=== PATIENT | female | born 1990 | race Caucasian/White ===

== ENCOUNTER → 2016-09-22 | Outpatient (CLI) | payer BC ==
[~2016-09-22] MED LIST: BCPILLS PO; HMLIS SC; INSDGIPEN SQ
== END | disposition home or self-care (01) ==
LOC: C.PAPS 12:15
PROVIDERS: ATTEND Obstetrics & Gynecology
DX: Z01.419 Encounter for gynecological examination (general) (routine) without abnormal findings (principal)

== ENCOUNTER → 2016-11-20 | Outpatient (CLI) | payer BC ==
[2016-11-20 09:59] LABS: ALB/GLOB RATIO 0.9 (0.9-2); ALKALINE PHOSPHATASE 109 U/L (45-117); ALT/SGPT 25 U/L (12-78); AST/SGOT 12 U/L (15-37); BLOOD UREA NITROGEN 14 mg/dl (7-18); BUN/CREATININE RATIO 16.3 (10-20); CALCIUM 8.8 mg/dl (8.5-10.1); CARBON DIOXIDE 28 mmol/L (21-32); CHLORIDE 103 mmol/L (98-107); CREATININE 0.85 mg/dl (0.60-1.20); GLUCOSE 235 mg/dl (70-99); POTASSIUM 4.2 mmol/L (3.5-5.1); SODIUM 138 mmol/L (136-145)
[2016-11-20 11:01] LABS: ESTIMATED AVERAGE GLUCOSE 189 mg/dl; HA1C FLAG Normal (Normal)
== END | disposition home or self-care (01) ==
LOC: C.LAB1850 07:23
PROVIDERS: ATTEND Physician Assistant
DX: E10.9 Type 1 diabetes mellitus without complications (principal)

== ENCOUNTER → 2017-05-03 | Outpatient (CLI) | payer BC ==
[2017-05-03 10:05] LABS: ESTIMATED AVERAGE GLUCOSE 189 mg/dl; HA1C FLAG Normal (Normal)
== END | disposition home or self-care (01) ==
LOC: C.LAB1850 07:28
PROVIDERS: ATTEND Physician Assistant
DX: E10.65 Type 1 diabetes mellitus with hyperglycemia (principal)

== ENCOUNTER → 2017-08-30 | Outpatient (CLI) | payer OTHER ==
[2017-08-30 18:57] LABS: CREATININE RANDOM URINE 21.8 mg/dl
[2017-08-31 06:01] LABS: HEMOGLOBIN A1C 7.8 % (4.5-5.6)
== END | disposition home or self-care (01) ==
LOC: C.LAB 17:42
PROVIDERS: ATTEND Physician Assistant
DX: E10.9 Type 1 diabetes mellitus without complications (principal)

== ENCOUNTER → 2017-11-29 | Outpatient (CLI) | payer OTHER ==
[2017-11-29 09:37] LABS: HEMATOCRIT 39.2 % (37-47); HEMOGLOBIN 13.4 g/dL (12.0-16.0); MEAN CELL VOLUME 84.3 fL (80-100); MEAN CORPUSCULAR HEMOGLOBIN 28.8 pg (25-34); MEAN CORPUSCULAR HGB CONC 34.2 g/dl (32-36); PLATELET COUNT 328 K/uL (130-400); RED CELL DISTRIBUTION WIDTH CV 12.6 % (11.5-14.5); RED CELL DISTRIBUTION WIDTH SD 38.5 fL (36.4-46.3); WHITE BLOOD COUNT 6.71 K/uL (4.8-10.8)
[2017-11-29 09:57] LABS: HEMOGLOBIN A1C 7.7 % (4.5-5.6)
== END | disposition home or self-care (01) ==
LOC: C.LAB1850 07:20
PROVIDERS: ATTEND Physician Assistant
DX: E10.9 Type 1 diabetes mellitus without complications (principal)

== ENCOUNTER → 2018-03-19 | Outpatient (CLI) | payer OTHER ==
[2018-03-19 11:29] LABS: ALBUMIN 3.8 gm/dl (3.4-5.0); ALKALINE PHOSPHATASE 91 U/L (45-117); ALT/SGPT 24 U/L (12-78); AST/SGOT 18 U/L (15-37); BLOOD UREA NITROGEN 15 mg/dl (7-18); CALCIUM 8.9 mg/dl (8.5-10.1); CARBON DIOXIDE 27 mmol/L (21-32); CREATININE 0.83 mg/dl (0.60-1.20); GLUCOSE 173 mg/dl (70-99); POTASSIUM 4.4 mmol/L (3.5-5.1); SODIUM 136 mmol/L (136-145)
== END | disposition home or self-care (01) ==
LOC: C.LAB 09:10
PROVIDERS: ATTEND Physician Assistant
DX: E10.9 Type 1 diabetes mellitus without complications (principal)

== ENCOUNTER → 2018-03-23 | Outpatient (CLI) | payer OTHER ==
[2018-03-24 06:19] LABS: HEMOGLOBIN A1C 7.6 % (4.5-5.6)
[2018-03-25 12:56] LABS: MICROSOMAL AB <1 IU/ML (<9)
== END | disposition home or self-care (01) ==
LOC: C.LAB1850 15:57
PROVIDERS: ATTEND Physician Assistant
DX: R79.89 Other specified abnormal findings of blood chemistry (principal); E10.9 Type 1 diabetes mellitus without complications

== ENCOUNTER 2022-07-12 19:04 | Inpatient (IN) ==
--- NOTE | 2022-07-12 19:42 | Obstetrical Progress Note ---
Date of Service July 12, 2022 Assessment & Plan (1) Type 1 diabetes mellitus affecting , antepartum: Plan gutiérrez placed. Will monitor pressures closely. no s/s of pet, may be anxious. If pressures remain elevated, would plan to keep for induction tonight. fetus category one. Subjective Patient presents 39 2/7 weeks to labor and delivery for gutiérrez bulb. Induction for type one diabetes. Patient feels well. Initial bp are elevated. Patient notes she feels well. no s/s of pet. Notes no vb/lof. +cramping. Discussed gutiérrez bulb and reason why we recommend . Verbal consent obtained. Physical Exam Physical Exam: cx--/-2 toco--nehemiah efm--150s with mod variability accels to 170s, no decels speculum placed. cx visualized and gutiérrez placed through. inflated with 30cc of sterile bleeding. a small amount of bleeding noted. tolerated well. Results & Data ([facility]) Vital Signs (Past 12 Hours) Vital Signs Temp Pulse Resp BP 07/12/22 19:15 20 07/12/22 19:15 37.0 C 20 07/12/22 19:29 104 H 161/101 H 07/12/22 19:19 96 H 158/98 H 07/12/22 19:18 92 H 176/105 H 07/12/22 19:16 89 144/89 H PG Care Time/CCT Total # of Minutes Spent Total Time Spent with Patient: Total time spent is greater than 50% in coordination of care (as documented) at patient's floor/unit and/or counseling patient: Coding Level of Care Code None Diagnoses Type 1 diabetes mellitus affecting , antepartum O24.019
[2022-07-12 20:15] LABS: Hemoglobin 10.4 g/dl (12.0-16.0); Mean Corpuscular Hemoglobin 28.6 pg (25.0-34.0); Mean Corpuscular Hgb Conc 33.5 g/dL (32.0-36.0); Mean Corpuscular Volume 85.2 fL (80.0-100.0); Platelet Count 323 K/uL (130-400); RDW Coefficient of Variation 13.1 % (11.5-14.5); RDW Standard Deviation 40.2 fL (36.4-46.3); Red Blood Count 3.64 M/uL (3.93-5.22); White Blood Count 9.76 K/ul (4.8-10.8)
--- NOTE | 2022-07-12 20:26 | History & Physical Report ---
Date of Service July 12, 2022 Assessment & Plan (1) Type 1 diabetes mellitus affecting , antepartum: (2) Group beta Strep positive: (3) with 39 completed weeks gestation: (4) Gestational hypertension: Plan Pressures have been completely normal in the office and now elevated to borderline severe range. With some rest they have resolved to more normal of 130-140/70-80. Plan to keep for induction now as I do not feel comfortable sending her home with the potential for blood pressures like she had. Likely has at minimum GHTN although has not been 4 hours between pressures to make a definitie diagnosis. Labs are all wnl. She is currently asymptomatic. Plan pitocin with her gutiérrez. treat gbs when starts to labor--pcn allergy, hives, will trial ancef. Treat BP as indicated. fetus category one. Patient will monitor her own blood sugars and insulin to keep her bs between 80-120. Anticipate . History of Present Illness Chief Complaint: presents for gutiérrez Primary Care Provider: Pallavi Adler MD Patient is a 32yowf who presents at 39 2/7 weeks for gutiérrez bulb for planned induction on Wednesday. She has been in her usual state of health. Notes no hastings/n/v/ruq pain/increase in swelling. Notes good fm. no lof/vb. Not really feeling contractions. she is having an induction because she is a type 1 diabetic. Gutiérrez bulb was placed without difficulty. Unfortunately her pressures were elevated even after placing the gutiérrez. 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 NON-REACTIVE (NON-REACTIVE) 12/10/21 Hepatitis C Antibody (EIA) NON-REACTIVE (NON-REACTIVE) 12/10/21 HIV (1&2) Ab and P24 Ag, 4th Gener NON-REACTIVE (NON-REACTIVE) 02/25/22 Maternal Serum Alpha Fetoprotein 44.8 ng/mL 01/28/22 OB Optional Labs: Chlamydia trachomatis RNA NOT DETECTED (NOT DETECTED) 12/05/21 F Neisseria gonorrhoeae RNA NOT DETECTED (NOT DETECTED) 12/05/21 Thyroid Stimulating Hormone (TSH) 1.17 mIU/L 04/27/22 Alpha Fetoprotein Triple Screen SEE NOTE 01/28/22 Labs Reviewed: 12/10/21 Blood TypeO positive antibody screennegative afp neg--akh low risk panorama sma neg cf +--spouse neg gbs positive urine Allergies Allergy/AdvReac Type Severity Reaction Status Date / Time Penicillins Allergy Unknown rash Verified 07/10/22 10:41 Home Medications Medication Instructions Recorded Confirmed Type acetone (urine) test (Ketostix #25 ea 05/17/19 07/10/22 History strips) blood sugar diagnostic (FreeStyle #100 ea 07/17/20 07/10/22 Rx Test strips) Novolog U-100 Insulin aspart 100 80 unit (0.8 mL) continuous 09/26/21 07/10/22 Rx unit/mL subcutaneous solution subcutaneous infusion DAILY #8 (insulin aspart U-100) vials blood sugar diagnostic (FreeStyle #200 ea 09/26/21 07/10/22 Rx Test strips) glucagon HCl 1 mg/mL solution for 1 mg IM UD PRN hypoglycemia #1 ea 09/26/21 07/10/22 Rx injection prenat.vits,julian,vtk-wawg-ndadd 1 tab PO DAILY 11/14/21 07/10/22 History aspirin 81 mg tablet,delayed 81 mg PO DAILY 07/01/22 07/10/22 History release (Adult Low Dose Aspirin) Patient History Medical History 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 Left fibular fracture PCOS (polycystic ovarian syndrome) Seasonal allergies Type 1 diabetes Varicella vaccination Surgical History Status post wisdom tooth extraction Family History Sister Anxiety Mother Diabetes Hypothyroidism Skin cancer Father Hypertension Prostate cancer Family/Other Cystic fibrosis niece Other Kidney disease Denies family history of Ovarian cancer Breast cancer Colorectal cancer Social History Smoking Status: Never smoker Second Hand Exposure: No; Do You Dip or Chew Tobacco: No; Tobacco Cessation Education Requested by Patient: No Hx Alcohol Use: Yes Hx Substance Use: No Preferred Language: Wallisian Communication Ability: Effective Visual Impairment: No Limitations Hearing Ability: Normal Keyboard Teacher Required: No Beliefs That Will Affect Care: None marital status: marital status details: aHrmeet Barlow (29) [phone] Current Living Situation: Spouse Current Living Situation Comment: current occupational status: employed 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 Neurologic: patellar DTR's 2+ bilat, sensation intact Psychiatric: A+Ox3, euthymic affect Results & Data ([facility]) Vital Signs (Past 12 Hours) Vital Signs Temp Pulse Resp BP 07/12/22 19:44 37.0 C 18 07/12/22 20:19 85 153/79 H 07/12/22 20:08 83 162/83 H 07/12/22 20:00 83 172/93 H 07/12/22 19:50 84 160/90 H 07/12/22 19:15 20 07/12/22 19:15 37.0 C 20 07/12/22 19:29 104 H 161/101 H 07/12/22 19:19 96 H 158/98 H 07/12/22 19:18 92 H 176/105 H 07/12/22 19:16 89 144/89 H Coding Level of Care Code None Diagnoses Type 1 diabetes mellitus affecting , antepartum O24.019 Group beta Strep positive B95.1 with 39 completed weeks gestation Z3A.39 Gestational hypertension O13.9
[2022-07-12] MEDS ORDERED: SODIUM CHLORIDE 0.9% 250 ML IV PRN (20:38)
[2022-07-12 20:53] LABS: Albumin Globulin Ratio 1.3 (0.9-2); Albumin Level 3.4 gm/dl (3.4-5.0); BUN Creatinine Ratio 14.9 (10-20); Bilirubin,Total 0.7 mg/dl (0.2-1.0); Creatinine Clr Calc Pharmacy 145.6 ml/min; Est GFR (African American) 136.7 ml/min; Globulin 2.7 gm/dl (2.5-4.0); Potassium 4.2 mmol/L (3.5-5.1); Total Protein 6.1 gm/dl (6.0-8.3)
[2022-07-12] MEDS ORDERED: OXYTOCIN 30 UNITS/500 ML BAG IV PRN ×2 (21:03→21:07)
[2022-07-12] MEDS ORDERED: ceFAZolin 2000MG 2,000 MG/15 ML SYR IV STA (21:03)
[2022-07-12] MEDS ORDERED: LIDOCAINE 1% LOCAL 20 ML VIAL INFIL PRN (21:03)
[2022-07-12] MEDS: LACTATED RINGER'S 1,000 ML IV PRN (22:00)
[2022-07-13] MEDS ORDERED: ceFAZolin 1000MG 1,000 MG/7.5 ML SYR IV PRN (04:03)
[2022-07-13] MEDS: LACTATED RINGER'S 1,000 ML IV PRN ×2 (05:51→16:24)
--- NOTE | 2022-07-13 07:16 | Labor Progress Brief Note ---
Date of Service July 13, 2022 Subjective noting contractions Assessment & Plan (1) Gestational hypertension: (2) with 39 completed weeks gestation: Plan gutiérrez out. Increase pitocin. fetus category one. BPs slightly elevated but not in severe range. epidural on demand. arom as indicated. Admission and Anticipated Discharge Date Admission Date: July 12, 2022 Physical Exam Physical Exam: gutiérrez pulled gently and removed cx--5/90/-2 toco--q2-3min, pit at 5 efm--130s with mod variability, accels to 150s, no decels Results & Data ([facility]) Vital Signs (Past 12 Hours) Vital Signs Temp Pulse Resp BP 07/12/22 19:44 37.0 C 18 07/13/22 05:52 89 145/90 H 07/13/22 05:49 85 154/95 H 07/13/22 04:00 36.8 C 81 18 137/92 07/13/22 00:31 85 156/90 H 07/12/22 23:31 79 148/82 H 07/12/22 22:30 93 H 139/88 07/12/22 21:30 90 141/95 H 07/12/22 20:58 85 135/78 07/12/22 20:53 83 139/74 07/12/22 20:48 81 141/74 H 07/12/22 20:44 77 142/70 H 07/12/22 20:19 85 153/79 H 07/12/22 20:08 83 162/83 H 07/12/22 20:00 83 172/93 H 07/12/22 19:50 84 160/90 H 07/12/22 19:15 20 07/12/22 19:15 37.0 C 20 07/12/22 19:29 104 H 161/101 H 07/12/22 19:19 96 H 158/98 H 07/12/22 19:18 92 H 176/105 H 07/12/22 19:16 89 144/89 H Coding Level of Care Code None Diagnoses Gestational hypertension O13.9 with 39 completed weeks gestation Z3A.39
[2022-07-13] MEDS ORDERED: OXYTOCIN 30 UNITS/500 ML BAG IV PRN ×2 (08:48→20:47)
--- NOTE | 2022-07-13 10:50 | Labor Progress Brief Note ---
Date of Service July 13, 2022 Subjective feeling ctx, not too painful Assessment & Plan (1) Gestational hypertension: (2) with 39 completed weeks gestation: (3) Type 1 diabetes mellitus affecting , antepartum: Plan not any cervical change. will use iupc to help guide pitocin. fhts categ. increase pit max. Admission and Anticipated Discharge Date Admission Date: July 12, 2022 Physical Exam Constitutional: WD/WN, vitals as above Neurologic: grossly normal Psychiatric: A+Ox3, euthymic affect Genitourinary: Manual OB Exam: + cervical dilation 5 cm and + cervical effacement 90% OB Exam Monitor Tracing: + external FHT monitor used, + external uterine monitor used (q2, pit at 15, iupc placed. ), + category I and + normal FHT variability Results & Data ([facility]) Vital Signs (Past 12 Hours) Vital Signs Temp Pulse Resp BP 07/13/22 10:41 85 151/88 H 07/13/22 10:26 83 139/88 07/13/22 10:10 86 144/89 H 07/13/22 09:55 82 159/92 H 07/13/22 09:41 79 152/88 H 07/13/22 09:25 78 149/88 H 07/13/22 08:20 80 148/86 H 07/13/22 08:05 84 142/85 H 07/13/22 07:50 85 153/93 H 07/13/22 07:20 18 07/13/22 07:20 98.4 F 18 07/13/22 07:19 90 169/91 H 07/13/22 05:52 89 145/90 H 07/13/22 05:49 85 154/95 H 07/13/22 04:00 98.2 F 81 18 137/92 07/13/22 00:31 85 156/90 H 07/12/22 23:31 79 148/82 H Coding Level of Care Code None Diagnoses Gestational hypertension O13.9 with 39 completed weeks gestation Z3A.39 Type 1 diabetes mellitus affecting , antepartum O24.019
[2022-07-13] MEDS ORDERED: NALOXONE HCL 0.4 MG/1 ML VIAL/CARP IV PRN (11:20)
[2022-07-13] MEDS ORDERED: ONDANSETRON INJ 2 MG/ML 2 ML VIAL IV PRN (11:20)
[2022-07-13] MEDS ORDERED: NALOXONE HCL 1 MG in SODIUM CHLORIDE 0.9% 1000ML 1,000 ML IV PRN (11:20)
[2022-07-13] MEDS ORDERED: diphenhydrAMINE 50 MG/ML VIAL IV PRN (11:20)
[2022-07-13] MEDS ORDERED: ePHEDrine sulfate 50 MG/ML AMP IV PRN (11:20)
[2022-07-13] MEDS ORDERED: NALBUPHINE HCL INJ 10 MG/ML AMP IV PRN (11:20)
[2022-07-13] MEDS ORDERED: fentaNYL 2MCG/ML ROPIVACAINE 1.25MG/ML 100 ML BAG EPI PRN (11:20)
--- NOTE | 2022-07-13 11:20 | Anesthesiology Consultation ---
Date of Service July 13, 2022 Assessment & Plan ASA ASA3 Proposed Anesthesia Anesthesia Type: Labor Epidural Risk / Benefits Reviewed With: PT / POA / Parent / Guardian, Accepts Plan and Informed Consent Obtained History Height/Weight Height: 5 ft 6 in Weight: 98.883 kg Allergies Allergy/AdvReac Type Severity Reaction Status Date / Time Penicillins Allergy Unknown rash Verified 07/10/22 10:41 Medications Home Medications Medication Instructions Recorded Confirmed Last Taken acetone (urine) test (Ketostix #25 ea 05/17/19 07/10/22 Unknown strips) blood sugar diagnostic (FreeStyle #100 ea 07/17/20 07/10/22 Unknown Test strips) Novolog U-100 Insulin aspart 100 80 unit (0.8 mL) continuous 09/26/21 07/12/22 Unknown unit/mL subcutaneous solution subcutaneous infusion DAILY #8 (insulin aspart U-100) vials blood sugar diagnostic (FreeStyle #200 ea 09/26/21 07/10/22 Unknown Test strips) glucagon HCl 1 mg/mL solution for 1 mg IM UD PRN hypoglycemia #1 ea 09/26/21 07/12/22 Unknown injection prenat.vits,julian,vlf-pwht-fklkv 1 tab PO DAILY 11/14/21 07/12/22 07/12/22 08:00 aspirin 81 mg tablet,delayed 81 mg PO DAILY 07/01/22 07/12/22 07/12/22 08:00 release (Adult Low Dose Aspirin) Active Medications Generic Name Dose Route Start Last Admin Trade Name Freq PRN Reason Stop Dose Admin Lactated Ringer's 1,000 mls @ 125 mls/hr 07/12/22 21:03 07/13/22 11:25 Lr IV 07/14/22 21:02 Infused .Q8H PRN Infusion L&D Protocol Protocol Oxytocin 30 units in 500 mls @ 15 mls/hr 07/13/22 08:48 07/13/22 10:19 Pitocin IV 07/15/22 08:47 0.9 units/hr .Q24H PRN 15 mls/hr Labor Induction/Augmentation Titration Protocol 0.9 UNITS/HR Ropivacaine 100 ml 07/13/22 11:20 07/13/22 11:53 Fentanyl 2mcg/Ml Ropivacaine 1.25mg/Ml 100 Ml Bag EPI 07/14/22 11:19 100 ml PRN PRN Administration Pain R/T Labor Protocol Past Medical History Medical History 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 Left fibular fracture PCOS (polycystic ovarian syndrome) Seasonal allergies Type 1 diabetes Varicella vaccination Exercise / Class Metabolic Activity II 4-5 Yardwork/Stairs/Walk up hill Past Family History Family History Sister Anxiety Mother Diabetes Hypothyroidism Skin cancer Father Hypertension Prostate cancer Family/Other Cystic fibrosis niece Other Kidney disease Denies family history of Ovarian cancer Breast cancer Colorectal cancer Past Surgical History Surgical History Status post wisdom tooth extraction Past Anesthesia History No Hx of Anesthesia Complications and No Family Hx of Anesthesia Complications History of PONV No Hx of PONV and No Hx of Motion Sickness Social History Smoking Status: Never smoker Do You Dip or Chew Tobacco: No Hx Alcohol Use: Yes Hx Substance Use: No substance use type: does not use Review of Systems denies fever/cough/ colds/ chest pain/ SOB/ CARMENZA denies CARMENZA Physical Exam Vital Signs Last Vital Signs Temp 37.0 C 07/13/22 10:40 Pulse 81 07/13/22 11:54 Resp 18 07/13/22 07:20 BP 133/74 07/13/22 11:54 Pulse Ox 100 07/13/22 11:53 ENMT Mouth: no TMJ abnormality and no dentition abnormality Thyromental Distance: > or= 3.5 Finger Breadths Mallampati Class: II Neck neck extension not limited Respiratory normal respiratory effort; no respiratory distress Auscultation: lungs clear to auscultation bilaterally Cardiovascular Rate/Rhythm: regular rate and regular rhythm Neurologic moves all extremities Psychiatric Orientation: alert and oriented x 3 Testing Laboratory Results 07/12/22 20:00 07/12/22 20:00 Blood Type O Positive 07/12/22 20:00 Antibody Screen NEGATIVE 07/12/22 20:00
[2022-07-13] MEDS ORDERED: ePHEDrine sulfate 50 MG/ML AMP ONE (12:33)
[2022-07-13] MEDS ORDERED: LIDOCAINE 2%/EPINEPHRINE 1:200,000 20 ML SDV ONE ×2 (12:34→16:14)
[2022-07-13] MEDS ORDERED: fentaNYL citrate 100 MCG/2 ML VIAL ONE ×2 (12:34→16:14)
[2022-07-13] MEDS ORDERED: BUPIVACAINE 0.25% 30 ML VIAL ONE (12:34)
[2022-07-13] MEDS ORDERED: fentaNYL 2MCG/ML ROPIVACAINE 1.25MG/ML 100 ML BAG EPI ONE (12:34)
[2022-07-13] MEDS ORDERED: SODIUM CHLORIDE 0.9% INJ 10 ML VIAL ONE (12:34)
--- NOTE | 2022-07-13 13:17 | Labor Progress Brief Note ---
Date of Service July 13, 2022 Subjective comfortable, denies pain or pressure Assessment & Plan (1) with 39 completed weeks gestation: (2) Type 1 diabetes mellitus affecting , antepartum: (3) Gestational hypertension: (4) Encounter for induction of labor: Plan rec restart pitocin (was stopped with decel in past and 9cm). fhts categ 1. +scalp stim response. Admission and Anticipated Discharge Date Admission Date: July 12, 2022 Physical Exam Constitutional: WD/WN, vitals as above Genitourinary: Manual OB Exam: + cervical dilation (ant lip), + cervical effacement 100% and + station 0 OB Exam Monitor Tracing: + external FHT monitor used, + intra-uterine pressure catheter used (q3 inadeq mvus), + category I and + normal FHT variability Results & Data ([facility]) Vital Signs (Past 12 Hours) Vital Signs Temp Pulse Resp BP Pulse Ox 07/13/22 13:13 94 H 100 07/13/22 13:08 83 99 07/13/22 13:06 88 131/72 07/13/22 13:03 80 100 07/13/22 12:58 77 100 07/13/22 12:30 18 07/13/22 12:30 18 07/13/22 12:45 18 07/13/22 12:45 18 07/13/22 12:21 18 07/13/22 12:21 18 07/13/22 12:53 99 H 100 07/13/22 12:51 99 H 130/56 L 07/13/22 12:48 90 128/70 100 07/13/22 12:43 101 H 100 07/13/22 12:40 96 H 132/81 07/13/22 12:38 93 H 100 07/13/22 12:36 52 L 161/124 H 07/13/22 12:33 100 H 100 07/13/22 12:28 104 H 100 07/13/22 12:23 100 H 100 07/13/22 12:20 112 H 92 07/13/22 12:18 103 H 100 07/13/22 12:17 99 H 142/93 H 07/13/22 12:13 89 100 07/13/22 12:12 100 H 120/60 07/13/22 12:11 108 H 145/64 H 07/13/22 12:08 94 H 100 12/05/22 12:07 89 146/81 H 07/13/22 12:03 85 124/73 100 07/13/22 12:00 85 130/73 07/13/22 11:59 98.4 F 07/13/22 11:51 18 07/13/22 11:51 18 07/13/22 11:55 18 07/13/22 11:55 18 07/13/22 11:58 83 18 132/70 100 07/13/22 11:56 87 134/80 07/13/22 10:40 98.6 F 07/13/22 11:54 81 133/74 07/13/22 11:53 76 100 07/13/22 11:52 74 137/71 07/13/22 11:50 83 148/78 H 07/13/22 11:49 78 145/69 H 07/13/22 11:48 98 H 98 07/13/22 11:47 87 164/91 H 07/13/22 11:45 88 158/78 H 07/13/22 11:43 95 H 100 07/13/22 11:42 96 H 154/91 H 07/13/22 11:40 88 154/87 H 07/13/22 11:38 81 07/13/22 11:38 92 H 149/89 H 100 07/13/22 11:36 87 151/88 H 07/13/22 11:34 95 H 161/90 H 07/13/22 11:33 87 100 07/13/22 11:32 92 H 92 07/13/22 11:28 92 H 100 07/13/22 11:26 90 166/91 H 07/13/22 11:23 89 100 07/13/22 11:18 89 100 07/13/22 11:13 81 154/93 H 100 07/13/22 11:12 95 H 94 07/13/22 11:08 91 H 100 07/13/22 11:03 88 100 07/13/22 11:01 102 H 88 L 07/13/22 10:58 89 100 07/13/22 10:56 86 159/82 H 07/13/22 10:41 85 151/88 H 07/13/22 10:26 83 139/88 07/13/22 10:10 86 144/89 H 07/13/22 09:55 82 159/92 H 07/13/22 09:41 79 152/88 H 07/13/22 09:25 78 149/88 H 07/13/22 08:20 80 148/86 H 07/13/22 08:05 84 142/85 H 07/13/22 07:50 85 153/93 H 07/13/22 07:20 18 07/13/22 07:20 98.4 F 18 07/13/22 07:19 90 169/91 H 07/13/22 05:52 89 145/90 H 07/13/22 05:49 85 154/95 H 07/13/22 04:00 98.2 F 81 18 137/92 Coding Level of Care Code None Diagnoses with 39 completed weeks gestation Z3A.39 Type 1 diabetes mellitus affecting , antepartum O24.019 Gestational hypertension O13.9 Encounter for induction of labor Z34.90
--- NOTE | 2022-07-13 15:31 | Communication Note ---
Date of Service: July 13, 2022 per nurse pt now complete and feeling pressure. begin 2nd stage. fhts categ 1.
[2022-07-13] MEDS ORDERED: Nursing to Pharmacy Communication SCH (16:00)
[2022-07-13] MEDS ORDERED: ROPIVACAINE 0.5% 5 MG/ML 30 ML VIAL ONE (16:14)
--- NOTE | 2022-07-13 17:19 | Communication Note ---
Date of Service: July 13, 2022 pt c/o abdominal pain right > left. Pt bolused 2 cc 2% lidocaine with epi, 3 cc 0.5% ropivicaine, and 100 mcg of fentanyl. pt pain improved. vss
[2022-07-13] MEDS ORDERED: OR MISCELLANEOUS MED XX ONE (20:40)
--- NOTE | 2022-07-13 20:43 | Delivery Summary ---
Vaginal Delivery Summary Date of Service July 13, 2022 Vaginal Delivery Summary and 3rd Degree LAC (partial) The patient dilated to complete and pushed to deliver a viable male infant Apgars 8 and 9 via over partial 3rd degree perineal laceration. Mouth and nose bulb suctioned at perineum. Shoulders and body delivered with ease. Infant was vigorous and crying at . Cord clamped at 30 seconds of life and infant to maternal abdomen where the cord was then doubly clamped and cut. Placenta delivered spontaneously and intact, three-vessel cord. Hemostasis achieved with dilute pitocin and uterine massage. Laceration repaired in layers with 2-0 and 3-0 vicryl after 1% local lidocaine anesthesia. Cervix and sulci intact. EBL 300 cc. Mother and baby stable in recovery. [facility] Vaginal Delivery Charge Delivery Type Details: and 3rd Degree LAC (partial)
[2022-07-13] MEDS ORDERED: MEASLES, MUMPS & RUBELLA VIRUS VIAL SQ ONE (20:45)
[2022-07-13] MEDS ORDERED: DIPHTHERIA/TETANUS/PERTUSSIS 0.5 ML SYR/VIAL IM ONE (20:47)
[2022-07-13] MEDS ORDERED: ACETAMINOPHEN 325 MG TAB PO PRN (20:47)
[2022-07-13] MEDS ORDERED: oxyCODONE/ACETAMINOPHEN 5mg/325mg TAB PO PRN (20:47)
[2022-07-13] MEDS ORDERED: HYDROCORTISONE ACETATE 25 MG SUPP PR PRN (20:47)
[2022-07-13] MEDS ORDERED: BENZOCAINE 20% AER SPR 82.5 GM CAN EXT PRN (20:47)
[2022-07-13] MEDS ORDERED: INSULIN, Rapid-Acting PUMP SCH (21:00)
[2022-07-13] MEDS ORDERED: INSULIN ASPART 100 UNITS/ML VIAL SC PRN (21:00)
[2022-07-13] MEDS ORDERED: OXYTOCIN 20 UNITS in LACTATED RINGER'S 1,000 ML IV SCH (21:00)
--- NOTE | 2022-07-13 22:36 | Anesthesia Procedure Note ---
Date of Service July 13, 2022 Anesthesia Post Epidural Note Vital Signs Vital Signs: Temp Pulse Resp BP Pulse Ox 37.2 C 95 H 18 146/78 H 98 07/13/22 21:35 07/13/22 22:33 07/13/22 22:05 07/13/22 22:06 07/13/22 22:33 Pain Intensity Abdomen: Pain Intensity: 0 Notes Mental Status: alert / awake / arousable and participated in evaluation Nausea / Vomiting: adequately controlled Pain: adequately controlled Airway Patency, RR, SpO2: stable & adequate BP & HR: stable & adequate Hydration State: stable & adequate Neuraxial Anesthesia: was administered and sensory block is resolving Anesthetic Complications: no major complications apparent and Pt Satisfied with anesthetic care Epidural: Removed without complications and With tip intact
[2022-07-13] MEDS: IBUPROFEN 600 MG TAB PO PRN (23:18)
[2022-07-13] MEDS: DOCUSATE SODIUM 100 MG CAP PO SCH (23:19)
[2022-07-14] MEDS: IBUPROFEN 600 MG TAB PO PRN ×4 (04:01→20:06)
--- NOTE | 2022-07-14 06:23 | Obstetrical Progress Note ---
Date of Service July 14, 2022 Assessment & Plan (1) care and examination: Plan stable, doing well. managing her bsgs with her own pump and meals. she notes has d/w endo running less tight in pp for a few days, notes bsg about 150. routine care. breast/mmr ordered/rh pos Day #:: 1 Subjective Ambulation: ambulating normally Voiding: no voiding problems Diet Tolerance:: regular diet Lochia:: Moderate Feeding Type:: breast feeding denies pain issues, in nursery with baby who is having bsg issues. Constitutional: + as per Subjective / HPI Physical Exam Constitutional WD/WN, vitals as above Respiratory normal respiratory effort, lungs clear to auscultation Cardiovascular Rate/Rhythm: regular rate and regular rhythm Gastrointestinal (Abdomen) Inspection/Auscultation: abdomen normal to inspection Percussion/Palpation: abdomen soft Fundus firm 1cm down Musculoskeletal nt calves tr edema Neurologic grossly normal Psychiatric A+Ox3, euthymic affect Results & Data ([facility]) Vital Signs (Past 12 Hours) Vital Signs Temp Pulse Pulse Resp BP BP Pulse Ox 07/14/22 04:00 97.5 F L 91 H 18 140/91 98 07/13/22 23:15 98.8 F 92 H 18 134/81 97 07/13/22 22:35 18 07/13/22 22:05 18 07/13/22 21:35 99.0 F 18 07/13/22 21:20 18 07/13/22 21:05 18 07/13/22 20:50 18 07/13/22 20:35 18 07/13/22 22:38 96 H 98 07/13/22 22:33 95 H 98 07/13/22 22:28 93 H 96 07/13/22 22:23 93 H 98 07/13/22 22:18 97 H 98 07/13/22 22:13 91 H 97 07/13/22 22:08 85 98 07/13/22 22:06 82 146/78 H 07/13/22 22:03 100 H 98 07/13/22 21:58 92 H 98 07/13/22 21:53 92 H 98 07/13/22 21:48 96 H 97 07/13/22 21:43 98 H 98 07/13/22 21:38 98 H 97 07/13/22 21:36 100 H 133/63 07/13/22 21:33 107 H 97 07/13/22 21:28 96 H 98 07/13/22 21:23 98 H 96 07/13/22 21:21 101 H 133/63 07/13/22 21:18 101 H 97 07/13/22 21:13 95 H 97 07/13/22 21:08 100 H 98 07/13/22 21:06 112 H 143/72 H 07/13/22 21:03 105 H 97 07/13/22 20:58 96 H 98 07/13/22 20:53 100 H 98 07/13/22 20:51 99 H 150/75 H 07/13/22 20:48 103 H 97 07/13/22 20:43 101 H 98 07/13/22 20:39 20 07/13/22 20:39 98.2 F 20 07/13/22 20:38 109 H 100 07/13/22 20:36 109 H 156/76 H 07/13/22 20:33 106 H 99 07/13/22 20:28 108 H 98 07/13/22 20:23 108 H 98 07/13/22 20:18 114 H 99 07/13/22 20:13 156 H 99 07/13/22 20:08 81 L 07/13/22 20:08 107 H 07/13/22 20:08 107 H 98 07/13/22 20:06 112 H 147/82 H 07/13/22 20:03 156 H 99 07/13/22 19:58 111 H 97 07/13/22 19:56 121 H 93 07/13/22 19:53 107 H 137/74 97 07/13/22 19:51 127 H 91 07/13/22 19:48 121 H 96 07/13/22 19:44 114 H 91 07/13/22 19:43 117 H 96 07/13/22 19:38 109 H 97 07/13/22 19:36 113 H 128/72 07/13/22 19:33 99 H 99 07/13/22 19:28 98 H 99 07/13/22 19:23 113 H 100 07/13/22 19:21 93 H 146/78 H 07/13/22 19:18 121 H 89 L 07/13/22 19:14 101 H 91 07/13/22 19:13 94 H 99 07/13/22 19:08 97.7 F 97 H 99 07/13/22 19:06 97 H 124/73 07/13/22 19:03 123 H 99 07/13/22 19:00 111 H 90 07/13/22 18:58 113 H 99 07/13/22 18:53 133 H 100 07/13/22 18:48 124 H 98 07/13/22 18:43 115 H 96 07/13/22 18:38 125 H 99 07/13/22 18:36 92 H 132/61 07/13/22 18:33 96 H 99 07/13/22 18:28 103 H 98 07/13/22 18:23 98 07/13/22 18:23 96 H 07/13/22 18:23 97 H 139/79 O2 Del Method 07/14/22 04:00 Room Air 07/13/22 23:15 Room Air 07/13/22 22:35 07/13/22 22:05 07/13/22 21:35 07/13/22 21:20 07/13/22 21:05 07/13/22 20:50 07/13/22 20:35 07/13/22 22:38 07/13/22 22:33 07/13/22 22:28 07/13/22 22:23 07/13/22 22:18 07/13/22 22:13 07/13/22 22:08 07/13/22 22:06 07/13/22 22:03 07/13/22 21:58 07/13/22 21:53 07/13/22 21:48 07/13/22 21:43 07/13/22 21:38 07/13/22 21:36 07/13/22 21:33 07/13/22 21:28 07/13/22 21:23 07/13/22 21:21 07/13/22 21:18 07/13/22 21:13 07/13/22 21:08 07/13/22 21:06 07/13/22 21:03 07/13/22 20:58 07/13/22 20:53 07/13/22 20:51 07/13/22 20:48 07/13/22 20:43 07/13/22 20:39 07/13/22 20:39 07/13/22 20:38 07/13/22 20:36 07/13/22 20:33 07/13/22 20:28 07/13/22 20:23 07/13/22 20:18 07/13/22 20:13 07/13/22 20:08 07/13/22 20:08 07/13/22 20:08 07/13/22 20:06 07/13/22 20:03 07/13/22 19:58 07/13/22 19:56 07/13/22 19:53 07/13/22 19:51 07/13/22 19:48 07/13/22 19:44 07/13/22 19:43 07/13/22 19:38 07/13/22 19:36 07/13/22 19:33 07/13/22 19:28 07/13/22 19:23 07/13/22 19:21 07/13/22 19:18 07/13/22 19:14 07/13/22 19:13 07/13/22 19:08 07/13/22 19:06 07/13/22 19:03 07/13/22 19:00 07/13/22 18:58 07/13/22 18:53 07/13/22 18:48 07/13/22 18:43 07/13/22 18:38 07/13/22 18:36 07/13/22 18:33 07/13/22 18:28 07/13/22 18:23 07/13/22 18:23 07/13/22 18:23
[2022-07-14] MEDS: DOCUSATE SODIUM 100 MG CAP PO SCH ×2 (07:16→20:06)
[2022-07-14] MEDS: PRENATAL VITAMIN 1 TAB PO SCH (07:16)
[2022-07-15] MEDS: IBUPROFEN 600 MG TAB PO PRN ×4 (00:32→23:29)
--- NOTE | 2022-07-15 07:02 | Obstetrical Progress Note ---
Date of Service <Lance Rudolph DO - Last Filed: 07/15/22 07:02> July 15, 2022 Assessment & Plan <Lance Rudolph DO - Last Filed: 07/15/22 07:02> (1) Vaginal delivery: - Feels well today. Eating well, voiding well, ambulating well. - Pain well controlled with ibuprofen 600mg Q4H PRN - Routine care -- OOB, ambulation, diet progression as tolerated - After discharge will have 6 week follow-up with Dr. Amado. - Will D/C today. Day #:: 2 <Jenna Huynh MD - Last Filed: 07/15/22 07:12> (1) Vaginal delivery: Subjective <Lance Rudolph DO - Last Filed: 07/15/22 07:02> Ambulation: ambulating normally Voiding: no voiding problems Passing Gas:: Yes Diet Tolerance:: regular diet Lochia:: Small Feeding Type:: breast feeding Current Pain Level(1-10): 3 Review of Systems Denies fever, chills, sweats Denies shortness of breath, difficulty breathing, chest pain, palpitations, chest pressure. Denies breast pain. Denies dysuria. Denies headache or changes in vision. Physical Exam <Lance Rudolph DO - Last Filed: 07/15/22 07:02> General: Alert, oriented. No acute distress. Cardiac: Regular rate and rhythm, no murmurs/rubs/gallops. Respiratory: Clear to auscultation bilaterally a/p, no wheezes/rales/rhonchi. No increased work of breathing. Symmetrical chest rise. No respiratory distress. Abdomen: Soft, nontender, nondistended. Bowel sounds present. Uterus: Uterine fundus firm, palpable 1 cm below umbilicus. Lower Extremities: No lower extremity edema or swelling. No deep calf pain. Rosalva's negative bilaterally. Results & Data ([facility]) <Lance Rudolph DO - Last Filed: 07/15/22 07:02> Vital Signs (Past 12 Hours) Vital Signs Temp Pulse Resp BP Pulse Ox O2 Del Method 07/14/22 23:30 36.6 C 85 16 152/92 H 100 Room Air 07/14/22 20:00 36.6 C 90 16 132/83 98 Room Air <Jenna Huynh MD - Last Filed: 07/15/22 07:12> Co-Signing Physician Notes Resident Physician Supervision Note: I interviewed and examined the patient. Discussed with Dr. Rudolph and agree with findings and plan as documented in the note. Any exceptions or clarifications are listed here: Patient continues self-management of T1DM, will receive MMR, and is to be called by office to arrange a 1wk for BP check. She has gHTN and currently vacillates between normal values and [id number] values, so no medication started at this time. Documented By: Jenna Huynh MD, FACOG Resident Activity Tracking <Lance Rudolph DO - Last Filed: 07/15/22 07:02> Resident Involvement: Resident Care Provided Care Provided: OB Delivery
[2022-07-15] MEDS: DOCUSATE SODIUM 100 MG CAP PO SCH ×2 (08:36→20:49)
[2022-07-15] MEDS: PRENATAL VITAMIN 1 TAB PO SCH (08:36)
[2022-07-15 14:12] LABS: Hematocrit (blood only) 25.7 % (34.1-44.9); Hemoglobin 8.4 g/dl (12.0-16.0); Mean Corpuscular Hemoglobin 28.4 pg (25.0-34.0); Mean Corpuscular Hgb Conc 32.7 g/dL (32.0-36.0); Mean Corpuscular Volume 86.8 fL (80.0-100.0); Mean Platelet Volume 9.7 fL (9.4-12.3); Platelet Count 264 K/uL (130-400); RDW Coefficient of Variation 13.4 % (11.5-14.5); RDW Standard Deviation 42.5 fL (36.4-46.3); Red Blood Count 2.96 M/uL (3.93-5.22); White Blood Count 9.56 K/ul (4.8-10.8)
[2022-07-15 14:33] LABS: Albumin Globulin Ratio 1.1 (0.9-2); Albumin Level 2.8 gm/dl (3.4-5.0); BUN Creatinine Ratio 13.6 (10-20); Bilirubin,Total 0.4 mg/dl (0.2-1.0); Calcium 8.5 mg/dl (8.5-10.1); Creatinine Clr Calc Pharmacy 165.4 ml/min; Est GFR (African American) 142.5 ml/min; Globulin 2.6 gm/dl (2.5-4.0); Total Protein 5.4 gm/dl (6.0-8.3)
[2022-07-15] MEDS ORDERED: LABETALOL HCL 100 MG TAB PO SCH (15:50)
--- NOTE | 2022-07-15 16:00 | Obstetrical Progress Note ---
Date of Service July 15, 2022 Assessment & Plan Admission and Anticipated Discharge Date Admission Date: July 12, 2022 Subjective Patient feeling well, has bilateral LE edema. BPs have been 150s/90s with occasional increases to 160/90s. Preeclampsia labs rechecked and normal. I discussed with patient that I would recommend that she stay overnight so we can continue monitoring BPs. Will start Labetalol 100mg BID. Results & Data ([facility]) Vital Signs (Past 12 Hours) Vital Signs Temp Pulse Resp BP BP Pulse Ox O2 Del Method 07/15/22 15:25 36.9 C 78 16 138/88 150/91 H 99 Room Air 07/15/22 14:30 157/85 H 160/96 H 07/15/22 13:48 148/87 H 163/84 H 07/15/22 07:25 36.5 C 94 H 18 143/93 H 98 Room Air PG Care Time/CCT Total # of Minutes Spent Total Time Spent with Patient: Total time spent is greater than 50% in coordination of care (as documented) at patient's floor/unit and/or counseling patient: Coding Level of Care Code None
[2022-07-15] MEDS ORDERED: LABETALOL HCL 100 MG TAB PO ONE (21:00)
[2022-07-16] MEDS: IBUPROFEN 600 MG TAB PO PRN ×4 (04:06→19:53)
--- NOTE | 2022-07-16 07:07 | Obstetrical Progress Note ---
Date of Service <Lance Rudolph DO - Last Filed: 07/16/22 07:58> July 16, 2022 Assessment & Plan <Lance Rudolph DO - Last Filed: 07/16/22 07:58> (1) Vaginal delivery: - Feels well today. Eating well, voiding well, ambulating well. - Pain well controlled with ibuprofen 600mg Q4H PRN - Routine care -- OOB, ambulation, diet progression as tolerated - After discharge will have 6 week follow-up with Dr. Amado. - Will plan to D/C today if blood pressure is stable. (2) Hypertension: - Pt is having elevated HTN after delivery. - Initially given labetalol 100 mg, which did not change BP much. - Will Start on labetalol 200mg BID this AM. Will check BP Q2H. - CBC, CMP checked yesterday were unremarkable besides elevated glucose of 201. - Will monitor BP, if normal then will send home on labetalol and have patient f/u in a week for BP check. Day #:: 3 <Maddie Birmingham, - Last Filed: 07/16/22 08:22> (1) Vaginal delivery: (2) Hypertension: Subjective <Lance Rudolph DO - Last Filed: 07/16/22 07:58> Ambulation: ambulating normally Voiding: no voiding problems Passing Gas:: Yes Diet Tolerance:: regular diet Lochia:: Small Feeding Type:: breast feeding Current Pain Level(1-10): 2 Patient is doing good today. She is no longer having a HAIDER as she was yesterday. She does feel a little light headed when she stands up but that has improved as well. She states that her legs are more swollen today. Review of Systems Denies fever, chills, sweats Denies shortness of breath, difficulty breathing, chest pain, palpitations, chest pressure. Denies breast pain. Denies dysuria. Denies headache or changes in vision. Physical Exam <Lance Rudolph - Last Filed: 07/16/22 07:58> General: Alert, oriented. No acute distress. Cardiac: Regular rate and rhythm, no murmurs/rubs/gallops. Respiratory: Clear to auscultation bilaterally a/p, no wheezes/rales/rhonchi. No increased work of breathing. Symmetrical chest rise. No respiratory distress. Abdomen: Soft, nontender, nondistended. Bowel sounds present. Uterus: Uterine fundus firm, palpable 2 cm below umbilicus. Lower Extremities: Bilateral lower extremity edema +1/+2. No deep calf pain. Rosalva's negative bilaterally. Results & Data ([facility]) <Lance Rudolph DO - Last Filed: 07/16/22 07:58> Vital Signs (Past 12 Hours) Vital Signs Temp Pulse Pulse Resp BP BP O2 Del Method 07/16/22 06:35 156/91 H 07/16/22 03:45 36.7 C 88 18 Room Air 07/16/22 03:10 145/90 H 07/16/22 00:45 143/91 H 07/15/22 22:45 90 138/87 07/15/22 20:45 84 151/92 H 07/15/22 19:50 147/95 H 07/15/22 19:40 Room Air 07/15/22 19:40 36.8 C 86 18 153/91 H Room Air <Maddie Birmingham DO - Last Filed: 07/16/22 08:22> Co-Signing Physician Notes Resident Physician Supervision Note: I was present with Dr. Rudolph during the history and exam. I discussed the case with the resident and agree with the findings and plan as documented in the note. Any exceptions or clarifications are listed here: PPD#3. Will plan to monitor BPs today - started 100mg labetalol yesterday afternoon, added another 100mg labetalol last night, then increased to 200mg for this morning's dose. Will monitor this BP today. If improved, will send Rx and plan for DC home - patient agreeable. Followup 1w for office BP check. Documented By: Maddie Birmingham DO Resident Activity Tracking <Lance Rudolph DO - Last Filed: 07/16/22 07:58> Resident Involvement: Resident Care Provided Care Provided: OB Delivery
[2022-07-16] MEDS: DOCUSATE SODIUM 100 MG CAP PO SCH ×2 (08:38→19:53)
[2022-07-16] MEDS: PRENATAL VITAMIN 1 TAB PO SCH (08:38)
[2022-07-16] MEDS ORDERED: LABETALOL HCL 200 MG TAB PO SCH (09:00)
--- NOTE | 2022-07-16 15:56 | XRay Report ---
TWO VIEW CHEST CLINICAL HISTORY: Orthopnea. Atypical chest pain and dyspnea.. FINDINGS: PA and lateral chest radiographs are obtained. No prior studies are available for compariso n at the time of dictation. The cardiomediastinal silhouette is unremarkable. The lungs and pleural spaces are clear. There is no pneumothorax. The bony thorax appears intact. IMPRESSION: No active disease in the chest. ACT 112: Negative or not required by law. Electronically signed by: Lance Small M.D. 07/16/2022 3:55 PM
[2022-07-16] MEDS ORDERED: NIFEdipine 10 MG CAP PO STA (16:21)
--- NOTE | 2022-07-17 06:52 | Obstetrical Progress Note ---
Date of Service <Lance BirdJazz Rudolph DO - Last Filed: 07/17/22 07:39> July 17, 2022 Assessment & Plan <Lance BirdJazz MiriamDO kim - Last Filed: 07/17/22 07:39> (1) Vaginal delivery: - Feels well today. Eating well, voiding well, ambulating well. - Pain well controlled with ibuprofen 600mg Q4H PRN - Routine care -- OOB, ambulation, diet progression as tolerated - After discharge will have 6 week follow-up with Dr. Amado. - Will plan to D/C today if blood pressure is stable. (2) Hypertension: - Pt is having elevated HTN after delivery. - Initially given labetalol 100 mg, which did not change BP much. Increased to 200mg BID, though BP did not again changed much. - Switched Labetalol to nifedipine 10mg, She initially got some palpations and felt light headed after. This may be due to her talking to her mother during that time and becoming stressed. She will take another dose this AM and see how she does with that. Plan to have close follow up for BP in 3 days on nifedipine, if able to tolerate this AM. - CBC, CMP were unremarkable besides elevated glucose of 201. - Will monitor BP - Unsure if HTN is a chronic or an acute issue at this time. Recommend she f/u with her PCP and talk about terminal supervisor BP control after discharge. Day #:: 4 <Wendie Terrell MD, FACOG - Last Filed: 07/17/22 07:57> (1) Vaginal delivery: (2) Hypertension: Subjective <Lance BirdJazz Rudolph DO - Last Filed: 07/17/22 07:39> Ambulation: ambulating normally Voiding: no voiding problems Passing Gas:: Yes Diet Tolerance:: regular diet Lochia:: Small Feeding Type:: breast feeding Current Pain Level(1-10): 1 Review of Systems Denies fever, chills, sweats Denies shortness of breath, difficulty breathing, chest pain, palpitations, chest pressure. Denies breast pain. Denies dysuria. Denies headache or changes in vision. Physical Exam <Lancemindy Rudolph DO - Last Filed: 07/17/22 07:39> General: Alert, oriented. No acute distress. Cardiac: 2/6 systolic murmur heard best at L sternal boarder, Regular rate and rhythm, Respiratory: Clear to auscultation bilaterally a/p, no wheezes/rales/rhonchi. No increased work of breathing. Symmetrical chest rise. No respiratory distress. Abdomen: Soft, nontender, nondistended. Bowel sounds present. Uterus: Uterine fundus firm, palpable 2 cm below umbilicus. Lower Extremities: Bilateral lower extremity edema +1/+2. No deep calf pain. Rosalva's negative bilaterally. Results & Data ([facility]) <Lance Rudolph DO - Last Filed: 07/17/22 07:39> Vital Signs (Past 12 Hours) Vital Signs Temp Pulse Pulse Resp BP BP Pulse Ox 07/17/22 03:36 36.4 C L 87 18 156/93 H 98 07/16/22 23:28 36.8 C 88 18 160/95 H 100 07/16/22 22:03 85 153/95 H 07/16/22 19:50 36.8 C 86 16 156/92 H 165/93 H 100 O2 Del Method 07/17/22 03:36 Room Air 07/16/22 23:28 Room Air 07/16/22 22:03 07/16/22 19:50 Room Air <Wendie Terrell MD, FACOG - Last Filed: 07/17/22 07:57> Co-Signing Physician Notes Resident Physician Supervision Note: I interviewed and examined the patient. Discussed with Dr. Rudolph and agree with findings and plan as documented in the note. Any exceptions or clarifications are listed here: Did ok with short acting nifedipine as far as blood pressure, but may have had a reaction. Will transition to the extended release formula. Plan likely d/c later today. no s/s of pet. Documented By: Wendie Terrell MD, FACOG Resident Activity Tracking <Lance Rudolph DO - Last Filed: 07/17/22 07:39> Resident Involvement: Resident Care Provided Care Provided: OB Delivery
[2022-07-17] MEDS ORDERED: NIFEdipine EXTENDED REL 30 MG TABCR PO STA (07:34)
[2022-07-17] MEDS: DOCUSATE SODIUM 100 MG CAP PO SCH (08:41)
[2022-07-17] MEDS: PRENATAL VITAMIN 1 TAB PO SCH (08:41)
[2022-07-17] MEDS ORDERED: NIFEdipine 10 MG CAP PO SCH (09:00)
== END 2022-07-17 16:45 | disposition home or self-care (01) | DRG 768 ==
LOC: OPB 19:04 → 4S1 19:05 → 4E2 07-13 23:10